=== PATIENT | male | born 1955 | race Two or more races ===

== ENCOUNTER 2017-02-16 08:59 | Emergency (ER) | payer OTHER ==
[~2017-02-16] VITALS: Ht 177.8 cm; Wt 86.2 kg
[2017-02-16] MEDS ORDERED: Norco 10mg/325mg tab ORAL ONE (09:30)
[2017-02-16] MEDS ORDERED: Ketorolac 60mg Inj IM ONE (09:30)
--- NOTE | 2017-02-16 09:58 | Emergency Room Report ---
History of Present Illness General Chief Complaint: Laceration Source: Patient Present Illness HPI Patient presents with complaints of left elbow discomfort Patient sustained a fall while sitting on a bench earlier approximately 45 minutes prior to arrival Pain is mainly localized to the left elbow Denies any shoulder pain Denies any hand pain The pain at the elbow is 7/10 worse with touch It was also associated breaks in the skin patient reports last tetanus shot 3 months ago denies any head injury or loss of consciousness Allergies: Coded Allergies: No Known Allergies (Unverified , 02/16/17) Patient History Past Medical History: see triage record Pertinent Family History: none Reviewed Nursing Documentation: PMH: Agreed, PSxH: Agreed Nursing Documentation-PMH Past Medical History: No History, Except For Hx Gastrointestinal Problems: Yes - CIRRHOSIS Review of Systems All Other Systems: negative except mentioned in HPI Physical Exam Vital Signs Date Time Temp Pulse Resp B/P Pulse Ox O2 Delivery O2 Flow Rate FiO2 02/16/17 09:01 97.3 71 20 155/78 96 Room Air Sp02 EP Interpretation: reviewed, normal General Appearance: mild distress Head: normocephalic, atraumatic Eyes: bilateral eye EOMI, bilateral eye PERRL ENT: normal pharynx, no angioedema Neck: full range of motion, supple Respiratory: chest non-tender, lungs clear Cardiovascular #1: regular rate, rhythm, no edema Gastrointestinal: non tender, soft Musculoskeletal: other - Patient has obvious trauma to the left elbow, there is associated hematoma just above the elbow of the olecranon, there appears to be also skin disruption with possible puncture wound more proximally, there is another associated skin avulsion at the mid dorsal forearm, patient is able to flex with increased pain at the elbow, also able to supinate however with increased discomfort neurovascularly however intact with good pulses distally and proximally and good sensation Neurologic: alert, oriented x3 Skin: other - as above Lymphatic: no adenopathy Procedures Splinting Splinting : Consent: Verbal Location: eft elbow Pre-Made Type: shoulder sling Splint: left shoulder Pre-Proc Neuro Vasc Exam: normal Post-Proc Neuro Vasc Exam: normal Patient Tolerated: Well Complications: None Medical Decision Making Diagnostic Impression: Primary Impression: Puncture wound Additional Impression: Hematoma ER Course Given the appearance and presentation patient had imaging studies obtained no obvious fractures are seen At this time patient had local lidocaine injected for local sedation approximately 5 mL After this patient had high pressure copious amounts of irrigation with normal saline Approximately 250 mL The puncture wound itself is approximately 5 mm in length With associated hematoma After further pressure cleansing the area does not appear to be appropriate for suture closure as I feel this will create a pocket for infection I discussed this with the patient we have further dressing applied Shoulder sling Patient was initiated on antibiotics as consideration for infection is high and requires close outpatient followup Other X-Ray Diagnostic Results Other X-Ray Diagnostic Results : # of Views/Limited Vs Complete: 3 View - left elbow Indication: Other - laceration EP Interpretation: Yes Interpretation: no dislocation, no fractures, other - Evidence of soft tissue disruption no obvious foreign body, no obvious dislocation or fracture Impression: Other - soft tissue disruption no acute fracture Interpreting ER Provider: ruby gonzalez DO Last Vital Signs Date Time Temp Pulse Resp B/P Pulse Ox O2 Delivery O2 Flow Rate FiO2 02/16/17 09:01 97.3 71 20 155/78 96 Room Air Status: improved Disposition: HOME, SELF-CARE Condition: Improved Scripts Ibuprofen* (MOTRIN*) 600 Mg Tablet 600 MG ORAL Q8H Y for For Pain, #30 TAB 0 Refills Prov: RUBY GONZALEZ D.O. 02/16/17 Trimethoprim/Sulfamethoxazole 160/800* (BACTRIM DS TABLET*) 1 Each Tablet 1 TAB ORAL Q12H, #20 TAB 0 Refills Prov: RUBY GONZALEZ D.O. 02/16/17 Cephalexin* (KEFLEX*) 500 Mg Capsule 500 MG ORAL Q6H, #40 CAP 0 Refills Prov: RUBY GONZALEZ D.O. 02/16/17 Referrals: NOT CHOSEN [facility]/,REFERRING (PCP) Additional Instructions: Patient is provided with the discharge instructions notified to follow up with primary doctor in the next 2-3 days otherwise return to the er with any worsening symptoms. Please note that this report is being documented using [employer] technology. This can lead to erroneous entry secondary to incorrect interpretation by the dictating instrument. Patient was also discussed regarding the need for close outpatient followup, given the puncture-type pathology of this injury infection is a high probability , patient's on antibiotics and requires recheck in 2-3 days by primary physician RUBY GONZALEZ D.O. Feb 16, 2017 09:58
--- NOTE | 2017-02-16 10:10 | Diagnostic Imaging Report ---
Indications: Fall, left elbow trauma and pain Technique: 3 views left elbow. Findings: Comparison: None Soft tissues posterior to the distal humerus are swollen with gas. Soft tissues posterior to the proximal ulna are swollen with small nodular calcific foci. No fracture, dislocation, joint space widening or obvious effusion , or other acute changes are identified. IMPRESSION: Posterior soft tissue injury with laceration. No associated fracture or foreign body. Nodular calcifications posterior to ulna olecranon process, nonspecific, may represent sequela of chronic bursitis.
[2017-02-16] MEDS ORDERED: IBUPROFEN600 MG ORAL (10:41)
[2017-02-16] MEDS ORDERED: BACTRIM DS TAB1 EAC1 ORAL (10:41)
[2017-02-16] MEDS ORDERED: KEFLEX500 MG ORAL (10:41)
[2017-02-16] MEDS ORDERED: Cephalexin 500mg cap ORAL ONE (10:45)
[2017-02-16 11:10] VITALS: BP 131/86
[2017-02-16 11:22] VITALS: BP 131/86
== END 2017-02-16 11:25 | disposition home or self-care (01) ==
LOC: EMR 09:24
DX: S51.032A Puncture wound without foreign body of left elbow, initial encounter (principal); S50.02XA Contusion of left elbow, initial encounter; W08.XXXA Fall from other furniture, initial encounter; Y93.9 Activity, unspecified; Y92.9 Unspecified place or not applicable; K74.60 Unspecified cirrhosis of liver
CPT/HCPCS: 96372; 99284